=== PATIENT | male | born 1975 | race Caucasian/White ===

== ENCOUNTER 2020-04-04 15:50 | Emergency (ER) | payer OTHER, SELFPAY ==
[2020-04-04 16:04] VITALS: BP 117/81; PULSE 116; RESP 16; TEMP 36.6; O2SAT 100
== END 2020-04-04 16:04 | disposition left against medical advice (07) ==
PROVIDERS: Emergency Provider Nurse Practitioner Family; PCP Physician Assistant
DX: Z53.21 Procedure and treatment not carried out due to patient leaving prior to being seen by health care provider (principal)
CPT/HCPCS: 99199

== ENCOUNTER 2020-04-05 09:52 | Emergency (ER) | payer OTHER, SELFPAY ==
[2020-04-05] VITALS (9 sets, daily range): BP systolic 116–180; BP diastolic 9–92; PULSE 89–139; RESP 18–19; TEMP 36.6; O2SAT 99–100
--- NOTE | 2020-04-05 10:13 | ECG_ITS ---
Measurements Intervals [place] Rate: 134 P: 51 ID: [id number] QRS: 38 QRSD: 84 T: 47 QT: 302 QTc: 451 Interpretive Statements SINUS TACHYCARDIA EARLY PRECORDIAL R/S TRANSITION NONSPECIFIC T-WAVE ABNORMALITY- INF/LAT LEADS BASELINE ARTIFACT- I, II, AVR, AVL, AVF, V3 ABNORMAL ECG Electronically Signed On 04-05-2020 11:28:33 CDT by Giovanni Hung D.O.
--- NOTE | 2020-04-05 10:49 | ED.GENADULT ---
HPI - General Adult General Chief complaint: Unspecified Stated complaint: MULTIPLE SX, LETHARGY Time Seen by Provider: 04/05/20 10:15 History of Present Illness HPI narrative: Dizzyness, lethargy for the past 3 days. Primarly with stnading and walking. Additionally c/o muscle cramps. He reports that he has had watery diarrhea for the past month. 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 Reports drinking plenty f water. No abdominal pain fever. Related Data Allergies Allergy/AdvReac Type Severity Reaction Status Date / Time lactose Allergy Unknown GI Verified 04/05/20 10:13 Intolerance Review of Systems Review of Systems: All systems reviewed & are unremarkable except as noted in HPI and below Constitutional: Constitutional: Denies chills, Reports fatigue and Denies fever(s) ENT: Denies sore throat Cardiovascular: Cardiovascular: Denies chest pain Respiratory: Respiratory: Denies dyspnea Gastrointestinal: Gastrointestinal: Reports diarrhea Genitourinary: Genitourinary: Denies dysuria Neurologic: Reports dizziness, Denies numbness and Denies weakness Endocrine: Endocrine: Denies polydipsia and Denies polyuria [facility] Social History Social History Gender identity (if verbalized by the patient): Male Exam Const: General: healthy appearing, no acute distress and alert Orientation/consciousness: patient oriented x3 HENMT: Mouth: Yes dry mucous membranes Neck: Neck: normal visual inspection and no lymphadenopathy Chest: Chest palpation & inspection: no tenderness Resp: Effort & Inspection: normal respiratory effort Auscultation: clear to auscultation bilaterally, no rales, no rhonchi and no wheezes Cardio: Jugular venous distension: no JVD Rate: tachycardic Rhythm: regular rhythm Heart sounds: no murmurs GI: Inspection: non-distended GI Palp: Yes Soft to palpation and No Tenderness to palpation present (GI) Skin: General skin exam: normal color Neuro: General: patient oriented x3, moves all extremities, no focal motor deficits and CN's II-XI intact bilaterally Speech: normal speech Gait exam (Neuro): Normal gait present Extrem: General: normal to inspection and no edema Psych: Appearance: well kempt Affect: normal affect Course Vital Signs Vital signs: Vital Signs Temperature 36.6 C 04/05/20 10:06 Pulse Rate 128 H 04/05/20 10:06 Respiratory Rate 18 04/05/20 10:06 Blood Pressure 139/88 04/05/20 10:06 Pulse Oximetry 100 04/05/20 10:06 Temperature 36.6 C 04/05/20 10:06 Pulse Rate 98 04/05/20 15:15 Respiratory Rate 18 04/05/20 15:15 Blood Pressure 131/90 04/05/20 15:15 Pulse Oximetry 99 04/05/20 15:15 Medical Decision Making MDM Narrative Medical decision making narrative: Tachycardia and Labs suggest moderate dehydration. Creatinine moderately elevated. chemistry otherwise normal. Feeling better and tachycardia resolved after hydration. Advised him to drink plenty of fluids and follow-up with his PCP in the next few days for repeat labs. Medical Records Medical records reviewed: Yes I reviewed the patient's medical records. Vital Signs Vital Signs: Vital Signs Temperature 36.6 C 04/05/20 10:06 Pulse Rate 128 H 04/05/20 10:06 Respiratory Rate 18 04/05/20 10:06 Blood Pressure 139/88 04/05/20 10:06 Pulse Oximetry 100 04/05/20 10:06 Temperature 36.6 C 04/05/20 10:06 Pulse Rate 98 04/05/20 15:15 Respiratory Rate 18 04/05/20 15:15 Blood Pressure 131/90 04/05/20 15:15 Pulse Oximetry 99 04/05/20 15:15 Lab Data Lab results reviewed: Yes I reviewed the patient's lab results. Result diagrams: 04/05/20 10:21 04/05/20 10:21 Labs: Lab Results 04/05/20 04/05/20 04/05/20 Range/Units 10:21 10:21 10:21 WBC 10.4 H (4.5-10.0) K/mm3 RBC 4.56 L (4.6-6.20) M/mm3 Hgb 16.6 (14.0-18.0) g/dL Hct 46.6 (42.0-52.0) % MCV 102.2 H
[2020-04-05] MEDS: SODIUM CHLORIDE 0.9% IV 1,000 ML 999 ML IV CONT ×3 (10:51→14:21)
[2020-04-05 11:03] LABS: Blood Urea Nitrogen 21 mg/dL (9-20); Calcium 10.3 mg/dL (8.4-10.2); Carbon Dioxide 28 mmol/L (22-30); Chloride 89 mmol/L (98-107); Estimated CRCL calculation 54 ml/min; Estimated Glomerular Filt Rate 41; Glucose 128 mg/dL (75-110); Sodium 126 mmol/L (137-145)
[2020-04-05 11:15] LABS: Alanine Aminotransferase 31 U/L (4-50); Albumin Level 4.7 g/dL (3.5-5.1); Alkaline Phosphatase 82 U/L (38-126); Aspartate Amino Transferase 45 U/L (17-59); Bilirubin,Total 0.9 mg/dL (0.2-1.3); Creatine Kinase 144 U/L (55-170); Total Protein 7.9 g/dL (6.3-8.2)
[2020-04-05 11:23] LABS: Hematocrit 46.6 % (42.0-52.0); Hemoglobin 16.6 g/dL (14.0-18.0); Red Blood Count 4.56 M/mm3 (4.6-6.20); White Blood Count 10.4 K/mm3 (4.5-10.0)
[2020-04-05 11:24] LABS: Eosinophils Percent Auto 0.5 % (0-4.4); Immature Granulocyte Percent A 0.7 % (0-0.5); Lymphocytes Percent Auto 15.2 % (18.3-44.2); Mean Corpuscular HGB Conc 35.6 g/dl (32-36); Mean Corpuscular Hemoglobin 36.4 pg (26-34); Mean Corpuscular Volume 102.2 fl (80-100); Mean Platelet Volume 8.9 fl (7.4-10.4); Monocytes Percent Auto 10.1 % (2.6-8.5); Neutrophils Percent Auto 73.2 % (45.5-73.1); Platelet Count Result 330 k/mm3 (150-375); Red Cell Distribution Width 12.6 % (11.5-14.5)
[2020-04-05 11:25] LABS: Basophils Percent Auto 0.3 % (0.2-1.2); Eosinophils Absolute Auto 0.1 K/mm3 (0-0.3); Immature Granulocyte Absolute 0.07 K/mm3 (0.00-0.031); Lymphocytes Absolute Auto 1.59 K/mm3 (0.9-3.2); Monocytes Absolute Auto 1.1 K/mm3 (0.1-0.6); Neutrophils Absolute Auto 7.7 K/mm3 (1.3-6.7)
[2020-04-05 13:08] LABS: Add Urine Microscopic? YES; Appearance Urine Cloudy (Clear); Bacteria Urine Trace /hpf; Bilirubin Urine 1+ (Negative); Color Urine Amber (Yellow); Glucose Urine UA Negative (Negative); Hyaline Casts Urine 50+ /lpf; Ketones Urine Negative (Negative); Leukocyte Esterase Ur Negative LEU/UL (Negative); Mucus Urine Rare /lpf; Nitrate Urine Negative (Negative); Protein Urine 2+ mg/dL (Negative); Specific Grav Ur 1.029 (1.001-1.035); Squamous Epithelial Cell Urine Few /hpf (Few); WBC Urine 16-20 /hpf
[2020-04-05 13:09] LABS: Blood Urine Negative (Negative)
== END 2020-04-05 15:16 | disposition home or self-care (01) ==
PROVIDERS: Emergency Provider Emergency Medicine; PCP Physician Assistant
DX: E86.0 Dehydration (principal); R00.0 Tachycardia, unspecified; R94.31 Abnormal electrocardiogram [ECG] [EKG]
CPT/HCPCS: 36415; 80048; 80076; 81001; 82550; 85025; 87086; 93005; 96360; 96361; 99284; J7030

== ENCOUNTER 2020-04-28 17:27 | Observation (INO) | payer OTHER, SELFPAY ==
[2020-04-28] VITALS (9 sets, daily range): BP systolic 82–116; BP diastolic 50–67; PULSE 67–92; RESP 16–18; TEMP 36.1–36.6; O2SAT 98–100; BMI 31.5
--- NOTE | ~2020-04-28 | CT_ITS ---
EXAMINATION: CT brain wo con INDICATION: Multiple syncopal episodes COMPARISON: None TECHNIQUE: Standard unenhanced head CT. The dose-length product (DLP) was 605.33 mGy-cm. The mA was a djusted according to patient size. Iterative reconstruction technique was employed. FINDINGS: There is no intracranial hemorrhage, acute infarction, or abnormal mass lesion. There are a reas of low attenuation in the bilateral insular cortex which could reflect old lacunar infarcts or d ilated perivascular spaces. The ventricles are normal. There is no abnormal mass effect or midline sh ift. The swanson-white matter differentiation is normal. The basal cisterns are patent. The orbits are n ormal. The paranasal sinuses, mastoids and calvarium are normal. IMPRESSION: 1. No acute intracranial abnormality. Areas of low attenuation in the left and right insular cortex c ould reflect old lacunar infarcts or dilated perivascular spaces. Reviewed, dictated and finalized at location A. IMPRESSION: 1. No acute intracranial abnormality. Areas of low attenuation in the left and right insular cortex could reflect old lacunar infarcts or dilated perivascular spaces.
--- NOTE | ~2020-04-28 | XR_ITS ---
EXAMINATION: XR chest 1V DATE: 04/28/2020 19:24 INDICATION: Multiple syncopal episodes TECHNIQUE: PA view of the chest is obtained. COMPARISON: 08/15/2017 FINDINGS: The lungs are free of acute opacities. There is no pleural effusion or pneumothorax. The he art size is normal. Calcified mediastinal lymph nodes are consistent with old granulomatous disease. There are partially imaged changes of posterior cervicothoracic fusion procedure. IMPRESSION: 1. No acute cardiopulmonary abnormality. Reviewed, dictated and finalized at location A.
--- NOTE | 2020-04-28 18:03 | ECG_ITS ---
Measurements Intervals [place] Rate: 82 P: 48 MS: 147 QRS: 30 QRSD: 87 T: 42 QT: 371 QTc: 436 Interpretive Statements SINUS RHYTHM EARLY PRECORDIAL R/S TRANSITION BORDERLINE ECG Electronically Signed On 04-29-2020 7:51:34 CDT by Giovanni Hung D.O.
[2020-04-28 18:15] LABS: Basophils Percent Auto 0.4 % (0.2-1.2); Eosinophils Absolute Auto 0.2 K/mm3 (0-0.3); Eosinophils Percent Auto 2.4 % (0-4.4); Hematocrit 41.6 % (42.0-52.0); Hemoglobin 14.6 g/dL (14.0-18.0); Immature Granulocyte Absolute 0.05 K/mm3 (0.00-0.031); Immature Granulocyte Percent A 0.5 % (0-0.5); Lymphocytes Absolute Auto 2.78 K/mm3 (0.9-3.2); Lymphocytes Percent Auto 29.3 % (18.3-44.2); Mean Corpuscular HGB Conc 35.1 g/dl (32-36); Mean Corpuscular Volume 102.7 fl (80-100); Mean Platelet Volume 9.3 fl (7.4-10.4); Monocytes Absolute Auto 0.9 K/mm3 (0.1-0.6); Monocytes Percent Auto 9.3 % (2.6-8.5); Neutrophils Absolute Auto 5.5 K/mm3 (1.3-6.7); Neutrophils Percent Auto 58.1 % (45.5-73.1); Platelet Count Result 354 k/mm3 (150-375); Red Blood Count 4.05 M/mm3 (4.6-6.20); White Blood Count 9.5 K/mm3 (4.5-10.0)
[2020-04-28 18:27] LABS: Blood Urea Nitrogen 53 mg/dL (9-20); Calcium 8.8 mg/dL (8.4-10.2); Carbon Dioxide 24 mmol/L (22-30); Chloride 96 mmol/L (98-107); Estimated CRCL calculation 16 ml/min; Estimated Glomerular Filt Rate 12; Glucose 105 mg/dL (75-110); Potassium 3.8 mmol/L (3.4-5.0); Sodium 130 mmol/L (137-145)
--- NOTE | 2020-04-28 19:10 | ED.SYNCOPE ---
HPI - Syncope General Chief Complaint: Syncope Stated Complaint: ongoing syncopal episodes Time Seen by Provider: 04/28/20 19:02 Source: RN notes reviewed History of Present Illness HPI narrative: Patient presents emergency department from home for syncopal episode. Patient states he has had 3 syncopal episodes in the past 24 hours. States his syncopal episodes occur when he is getting up and standing and he feels better when he lays down. He states that he has no associated chest pain or shortness of breath he denies any fevers or chills abdominal pain nausea vomiting or any other symptoms. He states he was seen in the emergency department in early April and diagnosed with dehydration at that time. Denies any other symptoms at this time Related Data Home Medications Medication Instructions Recorded Confirmed albuterol sulfate 2 puff INHALATION Q8H PRN 04/28/20 lisinopril 20 mg PO DAILY 04/28/20 Allergies Allergy/AdvReac Type Severity Reaction Status Date / Time lactose Allergy Unknown GI Verified 04/28/20 18:11 Intolerance Review of Systems Review of Systems: Narrative: Gen.: Denies fevers or chills Eyes: Denies eye pain or visual change ENT: Denies congestion Respiratory: Denies shortness of breath or cough CV: Reports syncope GI: Denies abdominal pain nausea, emesis or diarrhea denies burning, urgency, frequency or hematuria Musculoskeletal: Denies back pain or muscle pain Neuro: Denies numbness, tingling, weakness or focal weakness Skin: Denies rash Except as documented, all other systems reviewed and negative [facility] Past Medical History Medical History (Updated 04/28/20 @ 21:55 by Mahesh Bautista DO) Hypertension Social History Social History (Updated 04/28/20 @ 19:11 by Mahesh Bautista DO) Smoking status: Current every day smoker Gender identity (if verbalized by the patient): Male Exam Narrative: Exam Narrative: APPEARANCE: No acute distress, nontoxic, resting in bed EYES: EOMI HEENT: Normocephalic, atraumatic, oromucosa dry RESPIRATORY: No respiratory distress Clear to auscultation bilaterally with no rhonchi wheezing or rales. CARDIOVASCULAR: Regular rate and rhythm without murmurs rubs or gallops. ABDOMINAL: Soft, nontender, nondistended, no rebound or guarding MUSCULOSKELETAl: Moves all extremities. No clubbing, cyanosis or edema. NEURO: Awake and alert. Following commands, speech normal, no focal deficits SKIN:: Warm, dry. No rashes lesions or abrasions PSYCHIATRIC: Normal affect/mood, Course Course Emergency Course: Discussed with Dr. Ling presentation and work-up. Excepts admission at this time. Request patient be started on 0.9 normal saline at 150 mL an hour Discussed with patient and family results of workup and diagnosis. Discussed need for admission. Patient and family understand and agree to current treatment plan Vital Signs Vital signs: Vital Signs Temperature 97 F L 04/28/20 17:52 Pulse Rate 87 04/28/20 17:52 Respiratory Rate 16 04/28/20 17:52 Blood Pressure 82/50 L 04/28/20 17:52 Pulse Oximetry 98 04/28/20 17:52 Temperature 97 F L 04/28/20 17:52 Pulse Rate 85 04/28/20 21:09 Respiratory Rate 16 04/28/20 21:09 Blood Pressure 103/67 04/28/20 21:09 Pulse Oximetry 100 04/28/20 21:09 MDM - Syncope Lab Data Result diagrams: 04/28/20 18:08 04/28/20 18:08 Labs: Lab Results 04/28/20 04/28/20 04/28/20 Range/Units 18:08 18:08 19:40 WBC 9.5 (4.5-10.0) K/mm3 RBC 4.05 L (4.6-6.20) M/mm3 Hgb 14.6 (14.0-18.0) g/dL Hct 41.6 L (42.0-52.0) % MCV 102.7 H (80-100) fl MCH 36.0 H (26-34) pg MCHC 35.1 (32-36) g/dl RDW 12.0 (11.5-14.5) % Plt Count 354 (150-375) k/mm3 MPV 9.3 (7.4-10.4) fl Immature Gran % (Auto) 0.5 (0-0.5) % Neut % (Auto) 58.1 (45.5-73.1) % Lymph % (Auto) 29.3 (18.3-44.2) % Kane % (Auto) 9.3 H (2.6-8.5) % Eos
[2020-04-28 19:58] LABS: Partial Thromboplastin Time 25.8 SECONDS (22.3-36.8); Prothrombin Time 12.9 Seconds (11.1-14.7)
[2020-04-28 20:00] LABS: Alanine Aminotransferase 17 U/L (4-50); Albumin Level 4.3 g/dL (3.5-5.1); Alkaline Phosphatase 58 U/L (38-126); Aspartate Amino Transferase 23 U/L (17-59); Bilirubin,Total 0.3 mg/dL (0.2-1.3)
[2020-04-28 20:07] LABS: Creatine Kinase 120 U/L (55-170)
[2020-04-28] MEDS: SODIUM CHLORIDE 0.9% IV 1,000 ML 999 ML IV CONT ×2 (20:08→21:10)
[2020-04-28 20:12] LABS: Troponin I < 0.012 ng/mL (0.000-0.034)
[2020-04-28 21:01] LABS: Add Urine Microscopic? YES; Appearance Urine Cloudy (Clear); Bilirubin Urine Negative (Negative); Blood Urine Negative (Negative); Color Urine Yellow (Yellow); Glucose Urine UA Negative (Negative); Hyaline Casts Urine 20-29 /lpf; Ketones Urine Negative (Negative); Leukocyte Esterase Ur 1+ LEU/UL (Negative); Mucus Urine Rare /lpf; Nitrate Urine Negative (Negative); Protein Urine Negative (Negative); RBC Urine 0-2 /hpf (0-2); Specific Grav Ur 1.021 (1.001-1.035); Squamous Epithelial Cell Urine Few /hpf (Few)
--- NOTE | 2020-04-28 23:25 | ADMGEN ---
This patient, [place] Fer[place], was admitted to 3 [facility] Surg Room 321-01 at 2320. Patient/family oriented to hospital policies and general routines including ID bracelet, bed and alarms, visiting hours, pain management, procedures, bathroom and other care routines, personal items, smoking policy, room service/diet, and visiting hours. Valuables list has been completed. Information on how to activate the Rapid Response Team has been discussed. Patient/Family are encouraged to report perceived risks to care and to ask questions if they do not understand what they are told or what they should do.
[2020-04-29] VITALS (7 sets, daily range): BP systolic 92–151; BP diastolic 42–91; PULSE 68–91; RESP 18–20; TEMP 36.6–37.5; O2SAT 100
[2020-04-29] MEDS: SODIUM CHLORIDE 0.9% IV 1,000 ML 200 ML IV CONT ×3 (00:03→19:40)
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
[2020-04-29 06:32] LABS: Hematocrit 36.5 % (42.0-52.0); Hemoglobin 12.3 g/dL (14.0-18.0); Mean Corpuscular HGB Conc 33.7 g/dl (32-36); Mean Corpuscular Hemoglobin 35.4 pg (26-34); Mean Corpuscular Volume 105.2 fl (80-100); Mean Platelet Volume 9.4 fl (7.4-10.4); Platelet Count Result 301 k/mm3 (150-375); Red Blood Count 3.47 M/mm3 (4.6-6.20); Red Cell Distribution Width 11.8 % (11.5-14.5); White Blood Count 6.4 K/mm3 (4.5-10.0)
[2020-04-29 06:43] LABS: Blood Urea Nitrogen 46 mg/dL (9-20); Calcium 7.9 mg/dL (8.4-10.2); Carbon Dioxide 24 mmol/L (22-30); Chloride 103 mmol/L (98-107); Estimated CRCL calculation 36 ml/min; Estimated Glomerular Filt Rate 26; Glucose 97 mg/dL (75-110); Potassium 4.5 mmol/L (3.4-5.0); Sodium 132 mmol/L (137-145)
[2020-04-29 07:44] LABS: Folic Acid 3.7 ng/mL (2.76->20)
[2020-04-29] MEDS: ACIDOPHILUS/BULGARICUS CHEWABLE TABLET 2 TABLET PO (11:35)
[2020-04-29] MEDS: FAMOTIDINE 20 MG/2 ML VIAL IV PUSH ×2 (11:35→20:37)
[2020-04-29] MEDS: ENOXAPARIN 30 MG/0.3 ML SYRINGE SUB-Q (11:36)
--- NOTE | 2020-04-29 11:44 | PM.IMPN ---
Progress Note: A&P Assessment and Plan (1) Acute renal failure: Qualifiers: Acute renal failure type: unspecified Qualified Code(s): N17.9 - Acute kidney failure, unspecified Code(s): N17.9 - Acute kidney failure, unspecified Status: Acute Assessment and Plan: BUN 53 and creatinine 5.3 at admission. This is likely multifactorial. Renal failure initially came from dehydration/volume depletion and was exacerbated by the fact that the patient continued his home lisinopril at recently increased dose of 20 mg daily and intermittent naproxen/ibuprofen use. CK is normal. Improvement today with BUN 46 and creatinine 2.7. Continue to hold lisinopril, ibuprofen and naproxen Continue with aggressive IV fluid hydration. Continue to monitor renal function closely Continue to monitor I&Os. Renally dose medications and avoid nephrotoxic agents (2) Orthostatic hypotension: Code(s): I95.1 - Orthostatic hypotension Status: Acute Assessment and Plan: Due to dehydration and volume depletion. He was not orthostatic this morning, but supine blood pressure was low. Continue IV fluids. Repeat orthostatic vital signs daily (3) Syncope: Qualifiers: Syncope type: unspecified Qualified Code(s): R55 - Syncope and collapse Code(s): R55 - Syncope and collapse Status: Acute Assessment and Plan: Due to dehydration, heat exposure and orthostatic changes. He has not had any further episodes of syncope. Continue IV fluid rehydration Continue to monitor vitals closely (4) Alcohol abuse: Code(s): F10.10 - Alcohol abuse, uncomplicated Status: Acute Assessment and Plan: The patient has cut down his alcohol use significantly over the last year. He currently drinks 4 shots of alcohol per day. He is not displaying any alcohol withdrawal symptoms, and he denies any recurrence of alcohol withdrawal symptoms since last May. Will begin oral thiamine Macrocytosis was noted and B12 is mildly low and will be replaced. Folate is within normal limits. We discussed reduction in alcohol intake and recommended amount of no greater than 2 drinks per day. (5) Tobacco abuse disorder: Code(s): Z72.0 - Tobacco use Status: Acute Assessment and Plan: Patient smokes 10 cigarettes per day. He requests a nicotine patch. Begin 14 mg nicotine patch Subjective Date/time seen: 04/29/20 11:44 Interval history: Date of service: 04/29/2020 He is feeling much better today. He is urinating regularly and his urine has become more clear. He denies dizziness or lightheadedness, weakness, shortness of breath, chest pain, palpitations, nausea, vomiting, tremors, sweating, or anxiety. He requests a nicotine patch. His appetite has been good. He had a regular bowel movement this morning. He has no additional concerns. Review of Systems Review of Systems: Narrative: A 12 point review of systems was reviewed with pertinent positives and negatives as per HPI. Exam Narrative: Exam Narrative: Mr. Ferrera is examined alone today. He is a well-nourished 45-year-old male who is lying supine in bed. He appears comfortable and is in no acute respiratory distress. HR 88, BP 105/69, RR 20, T 98.1?, 100% on room air Neuro: awake, alert and oriented x4, speech clear, no focal neuro deficits noted HEENMT: normocephalic, atraumatic, EOMI, sclerae anicteric, moist oral mucosa, normal oropharynx Neck: supple, no lymphadenopathy Respiratory: clear to auscultation bilaterally, normal respiratory effort Cardio: regular rate, regular rhythm, no murmur noted Abdomen: normal to inspection, nondistended, normoactive bowel sounds, soft, nontender Extremities: BLE without edema, erythema, or pain to palpation, dorsal pedis pulses palpable bilaterally Skin: no rashes or lesions, warm and dry Psych: Pleasant and cooperative, normal mood and affect,
[2020-04-29] MEDS: THIAMINE HCL 100 MG TABLET PO (12:40)
[2020-04-29] MEDS: CYANOCOBALAMIN 1,000 MCG TABLET 1000 MCG PO (12:41)
[2020-04-29] MEDS: NICOTINE (*PBKC) 14 MG PATCH 1 PATCH TRANSDERM (15:36)
[2020-04-29] MEDS: CYANOCOBALAMIN INJ 1,000 MCG/ML VIAL 1000 MCG IM (20:38)
[2020-04-30] MEDS: SODIUM CHLORIDE 0.9% IV 1,000 ML 200 ML IV CONT (03:09)
[2020-04-30 06:00] VITALS: BP 134/91; PULSE 66; RESP 20; TEMP 36.8; O2SAT 100
[2020-04-30 06:34] LABS: Blood Urea Nitrogen 22 mg/dL (9-20); Calcium 8.1 mg/dL (8.4-10.2); Carbon Dioxide 24 mmol/L (22-30); Chloride 109 mmol/L (98-107); Estimated CRCL calculation 94 ml/min; Estimated Glomerular Filt Rate > 60; Glucose 99 mg/dL (75-110); Potassium 4.6 mmol/L (3.4-5.0); Sodium 134 mmol/L (137-145)
[2020-04-30 08:00] VITALS: BP 136/90; PULSE 59; O2SAT 64
[2020-04-30 08:05] VITALS: BP 152/104; PULSE 64; RESP 18; O2SAT 100
[2020-04-30] MEDS: CYANOCOBALAMIN 1,000 MCG TABLET 1000 MCG PO (09:06)
[2020-04-30] MEDS: THIAMINE HCL 100 MG TABLET PO (09:06)
[2020-04-30] MEDS: FAMOTIDINE 20 MG/2 ML VIAL IV PUSH (09:07)
[2020-04-30] MEDS: NICOTINE (*PBKC) 14 MG PATCH 1 PATCH TRANSDERM (09:07)
--- NOTE | 2020-04-30 10:14 | PM.DS ---
DS: Admitting Diagnosis Admitting Diagnosis Admitting Diagnosis: Acute kidney failure, unspecified DS: Discharge Diagnosis Discharge Diagnosis (1) Acute renal failure: Qualifiers: Acute renal failure type: unspecified Qualified Code(s): N17.9 - Acute kidney failure, unspecified Code(s): N17.9 - Acute kidney failure, unspecified Status: Acute Assessment and Plan: This is likely multifactorial secondary to dehydration/volume depletion and exacerbated by lisinopril use which was recently increased to 20 mg daily and intermittent ibuprofen/naproxen use. CK was normal. He was adequately rehydrated with IV fluids and his renal function improved. At time of discharge BUN 22 and creatinine 1.0. His lisinopril has been discontinued and he has been educated on risks of excessive NSAID use. We discussed the importance of adequate hydration. (2) Essential hypertension: Code(s): I10 - Essential (primary) hypertension Status: Acute Assessment and Plan: His lisinopril was recently increased from 10 mg to 20 mg daily, because he had been having increased headaches and dizziness. It was thought that his symptoms may be related to elevated blood pressures, but it is also possible that his blood pressures are dropping somewhat low, causing the symptoms. Given his LEIDY, I have switched him to amlodipine 5 mg daily. He will monitor his blood pressure at home and record for review by PCP, and additional adjustments may be made accordingly. (3) Orthostatic hypotension: Code(s): I95.1 - Orthostatic hypotension Status: Acute Assessment and Plan: Secondary to to dehydration and volume depletion. Orthostatic vital signs were monitored daily and this improved. His blood pressure remained stable following rehydration. (4) Syncope: Qualifiers: Syncope type: unspecified Qualified Code(s): R55 - Syncope and collapse Code(s): R55 - Syncope and collapse Status: Acute Assessment and Plan: He had a brief syncopal episode when rising to a standing position at home secondary to dehydration, heat exposure and orthostatic changes. He was rehydrated with IV fluids. He did not have any further episodes of syncope. His vitals remained stable. (5) Alcohol abuse: Code(s): F10.10 - Alcohol abuse, uncomplicated Status: Acute Assessment and Plan: The patient has cut down his alcohol use significantly over the last year. He currently drinks 4 shots of alcohol per day. He did not have any alcohol withdrawal symptoms. I encouraged him to reduce his alcohol intake to 2 drinks or less per day. He had macrocytosis with low B12. B12 and thiamine were initiated given his alcohol intake. (6) Tobacco abuse disorder: Code(s): Z72.0 - Tobacco use Status: Acute Assessment and Plan: Patient smokes 10 cigarettes per day. He requested a nicotine patch while staying in the hospital. I discussed smoking cessation with him for 5 minutes, but he is not interested in quitting smoking at this time. He has recently cut down from 1 pack per day to half pack per day. DS: Summary Hospital Course Reason for hospitalization: Syncope Hospital Course: Date of admission: 04/28/2020 Date of discharge: 04/30/2020 [place] Ferrera is a 45-year-old male with a past medical history significant for essential hypertension and alcohol abuse who presented to the emergency department on 04/29/2020 for evaluation of several syncopal episodes at home. 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 At presentation BP 82/50, sodium 130, BUN 53, creatinine 5.3, CK 120, an EKG was normal sinus rhythm. He was admitted to the hospitalist service and was rehydrated with IV fluids. His BUN and his creatinine improved significantly. He began feeling much better. His blood pressure stabilized. On day of discharg
[2020-04-30] MEDS: AMLODIPINE BESYLATE 5 MG TABLET PO (11:16)
== END 2020-04-30 11:25 | disposition home or self-care (01) ==
LOC: ANHED 22:07 → ANH3MEDSUR 22:27
PROVIDERS: Emergency Medicine; Physician Assistant; Admitting Provider Internal Medicine; Emergency Provider Emergency Medicine; PCP Physician Assistant; Visit Provider Family Medicine
DX: N17.9 Acute kidney failure, unspecified (principal); E86.0 Dehydration; I10 Essential (primary) hypertension; I95.1 Orthostatic hypotension; F17.210 Nicotine dependence, cigarettes, uncomplicated; F10.10 Alcohol abuse, uncomplicated; Z79.1 Long term (current) use of non-steroidal anti-inflammatories (NSAID); Z79.899 Other long term (current) drug therapy
CPT/HCPCS: 36415; 70450; 71045; 80048; 80076; 81001; 82550; 82607; 82746; 84484; 85025; 85027; 85610; 85730; 87086; 93005; 96360; 96361; 96372; 96374; 96376; 99285; A9270; G0378; J1650; J3420; J7030